=== PATIENT | male | born 1950 | race Caucasian/White ===

== ENCOUNTER 2016-12-19 05:38 | Day surgery (SDC) | payer OTHER ==
[2016-12-19] MEDS ORDERED: Zemuron 100 MG/10 ML IV ONE (05:39)
[2016-12-19] MEDS ORDERED: SUBLIMAZE 100 MCG/2 ML IV ONE (05:39)
[2016-12-19] MEDS ORDERED: Quelicin Fliptop 200 MG/10 ML IV ONE (05:39)
[2016-12-19] MEDS ORDERED: Decadron 4 MG INJ IV ONE (05:39)
[2016-12-19] MEDS ORDERED: DILAUDID 2 MG INJECTION IV ONE (05:39)
[2016-12-19] MEDS ORDERED: DIPRIVAN 200 MG/20 ML IV ONE (05:39)
[2016-12-19] MEDS ORDERED: Naropin 0.5% 30 ML VIAL IJ ONE (05:39)
[2016-12-19] MEDS ORDERED: BRIDION 200MG/2ML IV ONE (05:39)
[2016-12-19] MEDS ORDERED: Zofran 4 MG/2 ML VIAL IV ONE (05:39)
[2016-12-19] MEDS ORDERED: TORAdol 30 mg Injection IV ONE (05:39)
[2016-12-19] MEDS ORDERED: Marcaine 0.5%/Epinephrine 10 ML IJ ONE (05:39)
[2016-12-19] MEDS ORDERED: Lactated Ringers 1,000 ML IV SCH (06:30)
[2016-12-19] MEDS ORDERED: CEFAZOLIN 2 GM-D5W BAG** 2 GM/50 ML ML IV SCH (06:30)
[2016-12-19] MEDS ORDERED: Sensorcaine 0.25% 10 ML ONE (07:09)
[2016-12-19] MEDS ORDERED: Lactated Ringers 1,000 ML IV ONE ×2 (07:09→09:55)
[2016-12-19] MEDS ORDERED: KEFZOL 1 GM ONE (08:46)
[2016-12-19] MEDS ORDERED: Zofran 4 MG/2 ML VIAL ONE (10:22)
--- NOTE | 2016-12-19 13:31 | OP ---
SURGERY DATE/TIME: 12/19/2016 0851 PREOPERATIVE DIAGNOSIS: Umbilical hernia. POSTOPERATIVE DIAGNOSIS: Umbilical hernia x6. PROCEDURE: Umbilical herniorrhaphy with one piece of mesh openly. SURGEON: Von Richards M.D. ANESTHESIA: General. COMPLICATIONS: None. CONDITION: Stable. INDICATION: A patient with umbilical hernia from the upper edge of umbilicus. It is markedly symptomatic. It is probably incarcerated. DESCRIPTION OF PROCEDURE: He was taken to surgery. General anesthetic. Routine prep and drape. Upon opening through a fairly limited umbilical incision on top edge of the umbilicus going out transversely just slightly to the left from the right. Hernia sac was defined. Hernia sac about 4 inches long. This was predominant hernia but around this there were five additional pieces of omentum which were pushed up through the abdominal wall through small 8 mm openings which were all pulled out and all closed with suture #0 Prolene. The primary incarcerated omental defect was then totally taken down from the anterior abdominal wall. It was hemostatic. It was dropped back in the abdomen. The entire field was dry and free. A right umbilical clamp was also placed going around this making sure not to fill any more holes. No additional holes were palpable even with fingertip over the right angle. A small Bicomponent Absorbable end-to-side mesh was placed, pulled up and secured with four quadrant sutures #0 Prolene for secondary intraquadrant sutures of 0 Prolene. Some residual fascia was closed over 0 Vicryl, subcu 3-0 Vicryl, skin closed 4-0 Vicryl. Steri-Strips applied. Sterile dressing applied. The patient tolerated the procedure satisfactorily.
[2016-12-19 13:58] VITALS: O2SAT 96
[2016-12-19 14:02] VITALS: BP 154/85; PULSE 55
== END 2016-12-19 11:50 | disposition home or self-care (01) ==
LOC: SDC 05:38
PROVIDERS: ATTEND Surgery
PROC: 0WUF0JZ Supplement Abdominal Wall with Synthetic Substitute, Open Approach (ICD-10-PCS; principal; 2016-12-19)
DX: K42.0 Umbilical hernia with obstruction, without gangrene (principal)
CPT/HCPCS: 00832; 36415; 64425; 76942; J0330; J0690; J1100; J1170; J1885; J2405; J2704; J2795; J3010; L0625

== ENCOUNTER 2017-11-20 07:04 | Day surgery (SDC) | payer OTHER ==
[2017-11-20] MEDS ORDERED: Zemuron 100 MG/10 ML IV ONE (07:05)
[2017-11-20] MEDS ORDERED: BRIDION 200MG/2ML IV ONE (07:05)
[2017-11-20] MEDS ORDERED: TORAdol 30 mg Injection IV ONE (07:05)
[2017-11-20] MEDS ORDERED: SUBLIMAZE 250 MCG/5 ML IV ONE (07:05)
[2017-11-20] MEDS ORDERED: DIPRIVAN 200 MG/20 ML IV ONE (07:05)
[2017-11-20] MEDS ORDERED: Versed 2 MG/2 ML Injection IV ONE (07:05)
[2017-11-20] MEDS ORDERED: Lactated Ringers 1,000 ML IV ONE (07:29)
[2017-11-20] MEDS ORDERED: Lactated Ringers 1,000 ML IV SCH (07:30)
[2017-11-20] MEDS ORDERED: CEFAZOLIN 2 GM-D5W BAG** 2 GM/50 ML ML IV SCH (07:30)
[2017-11-20] MEDS ORDERED: Lactated Ringers 0 ML IV ONE (07:41)
[2017-11-20] MEDS ORDERED: Sensorcaine 0.25% 10 ML ONE ×2 (07:41→09:34)
[2017-11-20] MEDS ORDERED: KEFZOL 1 GM ONE (07:42)
[2017-11-20 08:28] LABS: Hematocrit 52.6 % (42-50); Hemoglobin 17.8 gm/dl (12.5-18.0); Mean Cell Volume 85.7 fl (78-100); Mean Corpuscular Hemoglobin 28.9 pg (26-32); Mean Corpuscular Hgb Concent. 33.8 g/dl (32-36); Mean Platelet Volume 9.8 fl (6-9.5); Platelet Count 516 K/mm3 (150-450); Red Blood Count 6.14 M/mm3 (4.1-5.6); Red Cell Distribution Width 15.2 % (11.5-14.0); White Blood Count 10.4 K/mm3 (4.0-10.5)
--- NOTE | 2017-11-20 10:01 | HP ---
DATE OF SURGERY: 11/20/2017 ADMISSION DIAGNOSIS: Right inguinal hernia. ANTICIPATED PROCEDURE: HISTORY OF PRESENT ILLNESS: The patient has a moderate sized right ventral hernia. Seen and examined, procedure discussed and wished to proceed. PAST MEDICAL HISTORY: ALLERGIES: NONE. MEDICATIONS: Generic vitamins, aspirin. PAST SURGICAL HISTORY: Left inguinal herniorrhaphy. Umbilical hernia. [place] SOCIAL HISTORY: Negative. FAMILY HISTORY: Negative. REVIEW OF SYSTEMS: CVS: Negative. Pulmonary: Negative. GI: Negative. : Negative. PHYSICAL EXAMINATION: VITAL SIGNS: Normal. CHEST: Clear. COR: Regular. ABDOMEN: Right inguinal hernia. IMPRESSION: Symptomatic right inguinal hernia. PLAN: Repair.
[2017-11-20] MEDS ORDERED: Zofran 4 MG/2 ML VIAL ONE (10:52)
[2017-11-20] MEDS ORDERED: APRESOLINE 20 MG/ML INJ ONE (11:00)
[2017-11-20 11:59] VITALS: BP 145/81; PULSE 57; O2SAT 95
--- NOTE | 2017-11-21 10:47 | OP ---
SURGERY DATE/TIME: 11/20/2017 0934 PREOPERATIVE DIAGNOSIS: Symptomatic right inguinal hernia. POSTOPERATIVE DIAGNOSIS: Right inguinal hernia 4 inches indirect. PROCEDURE: Right inguinal herniorrhaphy with mesh. SURGEON: Von Richards M.D. ANESTHESIA: General- endotracheal tube. COMPLICATIONS: None. CONDITION: Stable. INDICATION: The patient has symptomatic moderate sized right inguinal hernia. DESCRIPTION OF PROCEDURE: Taken to surgery. Routine prep and drape. Time out performed. 0.25% Marcaine. Curvilinear incision. External oblique opened. A 4 inch indirect sac dissected. It was highly ligated with suture #0 Prolene. The floor had some weakness. A 1 x 4 mesh placed. A preformed unit was used. Just a minimal amount was trimmed off for the toe. It was placed with 0 Prolene throughout. The nerves were quite distal. There were seven or eight nerves that were skipped over with repair of the hernia on the floor. Excellent solid repair was present. Internal ring was one clamp tight. Hemostasis satisfactory. External oblique closed with 0 Vicryl. Ermias fascia closed with 2-0 Vicryl. Skin closed with 4-0 Vicryl. Steri-Strips applied. Sterile dressing applied. Findings discussed with the family in the waiting room.
== END 2017-11-20 12:08 | disposition home or self-care (01) ==
LOC: SDC 07:04
PROVIDERS: ATTEND Surgery
DX: K40.90 Unilateral inguinal hernia, without obstruction or gangrene, not specified as recurrent (principal)
CPT/HCPCS: 36415; 85027; 94250; C1781; J0360; J0690; J1885; J2250; J2405; J2704; J3010